=== PATIENT | female | born 1990 | race Caucasian/White ===

== ENCOUNTER → 2023-11-03 16:06 | Outpatient (REF) | payer OTHER, SELFPAY | LOC: PNTC 16:06 | PROVIDERS: ATTENDING PHYSICIAN Obstetrics & Gynecology | DX: O09.529 Supervision of elderly multigravida, unspecified trimester (principal) | CPT/HCPCS: 59025; 76815 ==

== ENCOUNTER → 2023-11-10 15:56 | Outpatient (REF) | payer OTHER, SELFPAY | LOC: PNTC 15:56 | PROVIDERS: ATTENDING PHYSICIAN Obstetrics & Gynecology | DX: O09.529 Supervision of elderly multigravida, unspecified trimester (principal); O09.819 Supervision of pregnancy resulting from assisted reproductive technology, unspecified trimester | CPT/HCPCS: 59025; 76816; 86850; 86900; 86901 ==

== ENCOUNTER → 2023-11-17 15:54 | Outpatient (REF) | payer OTHER, SELFPAY | LOC: PNTC 15:54 | PROVIDERS: ATTENDING PHYSICIAN Obstetrics & Gynecology | DX: O09.529 Supervision of elderly multigravida, unspecified trimester (principal) | CPT/HCPCS: 76815 ==

== ENCOUNTER → 2023-11-18 16:24 | Outpatient (REF) | payer OTHER, SELFPAY | LOC: PNTC 16:24 | PROVIDERS: ATTENDING PHYSICIAN Obstetrics & Gynecology | DX: E86.9 Volume depletion, unspecified (principal) | CPT/HCPCS: 59025; 76815; 76820 ==

== ENCOUNTER 2023-11-22 10:05 | Inpatient (IN) | payer OTHER, SELFPAY ==
[2023-11-22 10:24] VITALS: BP 119/77; BMI 27.5
[2023-11-22 12:36] LABS: % Basophils 0.3 % (0-2); % Eosinophils 0.7 % (0-6); % Immature Granulocytes 0.3 % (0-0.5); % Lymphocytes 18.3 % (20.5-51.1); % Monocytes 6.5 % (1.7-9.3); % Neutrophils 73.9 % (42.2-75.2); Absolute Eosinophils 0.1 10^3/uL (0-0.7); Absolute Lymphocytes 1.3 10^3/uL (1.2-3.4); Absolute Monocytes 0.5 10^3/uL (0.1-0.6); Absolute Neutrophils 5.4 10^3/uL (1.4-6.5); Hematocrit 34.6 % (37.0-47.0); Hemoglobin 11.8 g/dL (12.0-16.0); Mean Corp Hgb Conc. 34.1 g/dL (33.0-37.0); Mean Corpuscular Hgb 30.1 pg (27.0-31.0); Mean Corpuscular Volume 88.3 fL (81.0-99.0); Mean Platelet Volume 9.5 fL (7.4-10.4); Nucleated Red Blood Cells % 0 %; Platelet Count 264 10^3/uL (130-400); Red Blood Cell Count 3.92 10^6/uL (4.20-5.40); Red Cell Dist. Width 14.1 % (11.5-14.5); White Blood Cell Count 7.3 10^3/uL (4.8-10.8)
[2023-11-22] MEDS: CYTOTEC 50 MICROGRAM VAG (12:58)
[2023-11-22] MEDS: CYTOTEC 25 MICROGRAM PO ×2 (17:03→21:08)
[2023-11-22] MEDS: LR 1000 IV (17:03)
[2023-11-23] MEDS: CYTOTEC PO ×5 (02:27→20:04)
[2023-11-23] MEDS: CYTOTEC 25 MICROGRAM PO (02:54)
[2023-11-23] MEDS: PITOCIN 30 UNITS/NSS 500 ML IV (13:00)
[2023-11-23] MEDS: PENICILLIN 110 UNITS IV (13:00)
[2023-11-23] MEDS: LR 1000 IV (13:00)
[2023-11-23] MEDS: PENICILLIN 55 UNITS IV ×2 (16:59→20:56)
[2023-11-24] MEDS: PENICILLIN 55 UNITS IV ×3 (01:23→09:05)
[2023-11-24] MEDS: MORPHINE SULFATE 2 MG IV (01:42)
[2023-11-24] MEDS: FENTANYL/BUPIVACAINE 100 EPIDURAL (08:07)
[2023-11-24] MEDS: SUBLIMAZE 100 MCG EPIDURAL (08:28)
[2023-11-24] MEDS: ANCEF 10 IV (10:11)
[2023-11-24] MEDS: BICITRA 30 ML PO (10:12)
[2023-11-24] MEDS: TYLENOL 1000 MG PO (10:12)
[2023-11-24] MEDS: ZITHROMAX INFUSION 250 IV (10:16)
[2023-11-24] MEDS: TORADOL 15 MG IV ×2 (16:03→22:41)
[2023-11-25] MEDS: TORADOL 15 MG IV ×2 (05:05→10:00)
[2023-11-25 06:03] LABS: Hematocrit 28.5 % (37.0-47.0); Hemoglobin 9.6 g/dL (12.0-16.0); Mean Corp Hgb Conc. 33.7 g/dL (33.0-37.0); Mean Corpuscular Hgb 30.7 pg (27.0-31.0); Mean Corpuscular Volume 91.1 fL (81.0-99.0); Platelet Count 207 10^3/uL (130-400); Red Blood Cell Count 3.13 10^6/uL (4.20-5.40); Red Cell Dist. Width 13.8 % (11.5-14.5); White Blood Cell Count 14.5 10^3/uL (4.8-10.8)
--- NOTE | 2023-11-25 07:52 | W.PN.ANS.POP ---
Anesthesia Post Operative
- Anesthesia Post Op Note
Vital Signs Stable-See Nursing Note: Yes
Airway Patent: Yes
Adequate Pain Control: Yes
Change in Mental Status: No
Current Postoperative Nausea & Vomiting: No
Anesthesia Complications: No
General Anesthetic Recall: No
Unplanned Admission: No
Post Op Hydration Adequate: Yes
[2023-11-25] MEDS: PRENATAL PLUS PO (09:00)
[2023-11-25] MEDS: MYLICON 80 MG PO ×2 (10:01→20:50)
[2023-11-25] MEDS: PERCOCET 5/325 1 TABLET PO (15:29)
[2023-11-25] MEDS: MOTRIN 600 MG PO (20:42)
[2023-11-25] MEDS: TYLENOL 650 MG PO (20:42)
[2023-11-25] MEDS: FEOSOL 325 MG PO (20:42)
[2023-11-26] MEDS: TYLENOL 650 MG PO ×4 (01:56→19:42)
[2023-11-26] MEDS: MOTRIN 600 MG PO ×4 (02:47→21:19)
[2023-11-26] MEDS: MYLICON 80 MG PO ×3 (08:58→19:42)
[2023-11-26] MEDS: FEOSOL 325 MG PO (08:58)
[2023-11-26] MEDS: SENOKOT-S 1 TABLET PO (08:58)
[2023-11-26] MEDS: PRENATAL PLUS 1 TABLET PO (08:59)
[2023-11-26 16:30] LABS: Syphilis/T. pallidum Ab Reflex Negative (Negative)
[2023-11-27] MEDS: TYLENOL 650 MG PO ×2 (00:04→07:50)
[2023-11-27] MEDS: MOTRIN 600 MG PO ×2 (03:20→10:45)
[2023-11-27] MEDS: FEOSOL 325 MG PO (07:49)
[2023-11-27] MEDS: PRENATAL PLUS 1 TABLET PO (07:49)
[2023-11-27] MEDS: MYLICON 80 MG PO (07:49)
[2023-11-27] MEDS: SENOKOT-S 1 TABLET PO (07:49)
--- NOTE | 2023-11-27 08:09 | W.DS.TRANS ---
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
-
Discharge Instructions:
Discharge Diagnosis/Procedures cs
Instructions:
Stand-Alone Forms: LDRP Delivery
Changes to Home Medications: No
Discharge Medications:
DC Medications w/original date entered in [facility]
loratadine 10 mg tablet (Claritin) 10 mg PO DAILY Allergies 09/02/23
prenat.vits,jonathan,jzo-mzoh-ojshq 1 tab PO DAILY Supplement 09/02/23
Vitamin D3 5,000 units PO DAILY Supplement 11/22/23
choline 1 tab PO DAILY Supplement 11/22/23
iron 1 tab PO DAILY Supplement 11/22/23
ibuprofen 600 mg tablet 600 mg PO Q6HPRN PRN cramps #90 tabs 11/27/23
Home Medication Changes
Pending Results: No
Total time spent discharging patient (in min): 20
== END 2023-11-27 15:48 | disposition home or self-care (01) | DRG 788 ==
LOC: LDRP 10:05
PROVIDERS: Obstetrics & Gynecology; ADMITTING PHYSICIAN Obstetrics & Gynecology
PROC: 3E0P7VZ Introduction of Hormone into Female Reproductive, Via Natural or Artificial Opening (ICD-10-PCS; 2023-11-22)
PROC: 0U7C7ZZ Dilation of Cervix, Via Natural or Artificial Opening (ICD-10-PCS; 2023-11-23)
PROC: 3E033VJ Introduction of Other Hormone into Peripheral Vein, Percutaneous Approach (ICD-10-PCS; 2023-11-23)
PROC: 0UB10ZZ Excision of Left Ovary, Open Approach (ICD-10-PCS; 2023-11-24)
PROC: 10D00Z1 Extraction of Products of Conception, Low, Open Approach (ICD-10-PCS; 2023-11-24)
PROC: 10H07YZ Insertion of Other Device into Products of Conception, Via Natural or Artificial Opening (ICD-10-PCS; 2023-11-24)
DX: O41.03X0 Oligohydramnios, third trimester, not applicable or unspecified (principal); O99.824 Streptococcus B carrier state complicating childbirth; O76 Abnormality in fetal heart rate and rhythm complicating labor and delivery; O34.83 Maternal care for other abnormalities of pelvic organs, third trimester; N80.102 Endometriosis of left ovary, unspecified depth; Z3A.39 39 weeks gestation of pregnancy; Z37.0 Single live birth
CPT/HCPCS: 88304; 88307; 36415; 76815; 85025; 85027; 86780; 86850; 86900; 86901

== ENCOUNTER 2024-02-09 12:33 | Outpatient (RCR) | payer OTHER, SELFPAY | END 2024-02-09 23:59 | disposition home or self-care (01) | LOC: RPT 12:33 | PROVIDERS: ATTENDING PHYSICIAN Obstetrics & Gynecology; FAMILY PHYSICIAN Family Medicine | DX: N81.84 Pelvic muscle wasting (principal); M62.81 Muscle weakness (generalized); N39.3 Stress incontinence (female) (male); R10.2 Pelvic and perineal pain | CPT/HCPCS: 97163; 97530 ==

== ENCOUNTER 2024-03-22 15:15 | Outpatient (RCR) | payer OTHER, SELFPAY | END 2024-03-22 23:59 | disposition home or self-care (01) | LOC: RPT 15:15 | PROVIDERS: ATTENDING PHYSICIAN Obstetrics & Gynecology; FAMILY PHYSICIAN Family Medicine | DX: N81.84 Pelvic muscle wasting (principal); M62.81 Muscle weakness (generalized); N39.3 Stress incontinence (female) (male); R10.2 Pelvic and perineal pain; Z39.2 Encounter for routine postpartum follow-up | CPT/HCPCS: 97110; 97112; 97140; 97530 ==

== ENCOUNTER 2024-04-26 14:02 | Outpatient (RCR) | payer OTHER, SELFPAY | END 2024-04-26 23:59 | disposition home or self-care (01) | LOC: RPT 14:02 | PROVIDERS: ATTENDING PHYSICIAN Obstetrics & Gynecology; FAMILY PHYSICIAN Family Medicine | DX: N81.84 Pelvic muscle wasting (principal); M62.81 Muscle weakness (generalized); N39.3 Stress incontinence (female) (male); R10.2 Pelvic and perineal pain; Z39.2 Encounter for routine postpartum follow-up | CPT/HCPCS: 97014; 97110; 97112; 97140; 97530 ==

== ENCOUNTER 2024-05-17 13:00 | Outpatient (RCR) | payer OTHER, SELFPAY | END 2024-05-17 23:59 | disposition home or self-care (01) | LOC: RPT 13:00 | PROVIDERS: ATTENDING PHYSICIAN Obstetrics & Gynecology; FAMILY PHYSICIAN Family Medicine | DX: N81.84 Pelvic muscle wasting (principal); M62.81 Muscle weakness (generalized); N39.3 Stress incontinence (female) (male); R10.2 Pelvic and perineal pain; Z39.2 Encounter for routine postpartum follow-up | CPT/HCPCS: 97014; 97110; 97112; 97530 ==

== ENCOUNTER 2024-06-16 14:01 | Outpatient (RCR) | payer OTHER, SELFPAY | END 2024-06-16 23:59 | disposition home or self-care (01) | LOC: RPT 14:01 | PROVIDERS: ATTENDING PHYSICIAN Obstetrics & Gynecology; FAMILY PHYSICIAN Family Medicine | DX: N81.84 Pelvic muscle wasting (principal); M62.81 Muscle weakness (generalized); N39.3 Stress incontinence (female) (male); R10.2 Pelvic and perineal pain; Z39.2 Encounter for routine postpartum follow-up | CPT/HCPCS: 97014; 97110; 97112; 97530 ==

== ENCOUNTER 2024-07-12 14:54 | Outpatient (RCR) | payer OTHER, SELFPAY | END 2024-07-12 23:59 | disposition home or self-care (01) | LOC: RPT 14:54 | PROVIDERS: ATTENDING PHYSICIAN Obstetrics & Gynecology; FAMILY PHYSICIAN Family Medicine | DX: N81.84 Pelvic muscle wasting (principal); M62.81 Muscle weakness (generalized); N39.3 Stress incontinence (female) (male); R10.2 Pelvic and perineal pain; Z39.2 Encounter for routine postpartum follow-up | CPT/HCPCS: 97014; 97110; 97112; 97140; 97530 ==

== ENCOUNTER 2024-08-30 12:15 | Outpatient (RCR) | payer OTHER, SELFPAY | END 2024-08-30 23:59 | disposition home or self-care (01) | LOC: RPT 12:15 | PROVIDERS: ATTENDING PHYSICIAN Obstetrics & Gynecology; FAMILY PHYSICIAN Family Medicine | DX: N81.84 Pelvic muscle wasting (principal); M62.81 Muscle weakness (generalized); N39.3 Stress incontinence (female) (male); R10.2 Pelvic and perineal pain; Z39.2 Encounter for routine postpartum follow-up | CPT/HCPCS: 97140; 97530 ==

== ENCOUNTER 2024-10-25 15:09 | Outpatient (RCR) | payer OTHER, SELFPAY | END 2024-10-26 07:37 | disposition home or self-care (01) | LOC: RPT 15:09 | PROVIDERS: ATTENDING PHYSICIAN Obstetrics & Gynecology; FAMILY PHYSICIAN Family Medicine | DX: N81.84 Pelvic muscle wasting (principal); M62.81 Muscle weakness (generalized); N39.3 Stress incontinence (female) (male); R10.2 Pelvic and perineal pain; Z39.2 Encounter for routine postpartum follow-up | CPT/HCPCS: 97110; 97112; 97140; 97530 ==